=== PATIENT | female | born 1990 | race Caucasian/White ===

== ENCOUNTER 2019-10-04 06:39 | Inpatient (IN) | payer SELFPAY ==
[2019-10-04] MEDS ORDERED: Penicillin G Potassium 5,000,000 Unit Vial ONE (07:00)
[2019-10-04] MEDS ORDERED: Ondansetron 4 MG/2 ML SDV IV PRN (07:42)
[2019-10-04] MEDS ORDERED: Tranexamic Acid 1,000 MG in Sodium Chloride 0.9% 100 ML IV PRN (07:42)
[2019-10-04] MEDS ORDERED: Methylergonovine 0.2 MG/1 ML Amp IM PRN (07:42)
[2019-10-04] MEDS ORDERED: Lactated Ringers 500 ML IV ONE (07:42)
[2019-10-04] MEDS ORDERED: Carboprost Tromethamine 250 MCG/1 ML Amp IM PRN (07:42)
[2019-10-04] MEDS ORDERED: Misoprostol 400 MCG (4 X 100 MCG TAB) RECTAL PRN (07:42)
[2019-10-04] MEDS ORDERED: Sodium Chloride 0.9% 10 ML Syringe FLUSH PRN ×2 (07:42→18:25)
[2019-10-04] MEDS ORDERED: Lidocaine 1% 30 ML SDV INJECT PRN (07:42)
[2019-10-04] MEDS ORDERED: Acetaminophen 325 MG Tab PO PRN (07:42)
[2019-10-04] MEDS ORDERED: Oxytocin/Normal Saline 30 UNIT/500 ML BAG IV SCH (07:45)
[2019-10-04] MEDS: Lactated Ringers 1,000 ML IV SCH ×2 (09:15→15:53)
[2019-10-04] MEDS: Penicillin G Potassium 3 MILLUNITS in Sodium Chloride 0.9% 100 ML IV SCH ×4 (11:15→23:41)
--- NOTE | 2019-10-04 14:19 | HP ---
ADDENDUM: VITAL SIGNS: Temperature 97, heart rate 72, blood pressure 107/61. Labs did return. Her hemoglobin was 11.7 and her platelets were in the 187,000. We will continue await further labs to return. MOD /[id number]
--- NOTE | 2019-10-04 14:33 | OBOUT ---
DATE: 10/04/2019 TIME: 7:36 to 7:48. REASON FOR NST: 1. Intrauterine at 35 and 1/7 weeks by ultrasound yesterday and 40 and 6/7 weeks by last menstrual period. 2. Vaginal bleeding. 3. Active labor. 4. Insufficient care. 5. History of fast labor and delivery, not a transfer candidate. 6. G4, P3-0-0-3. 7. History of signing out against medical advice earlier today. NST INTERPRETATION: During this time period, heart tone baseline is approximately 125, and there are at least two 15 x 15 beats per minute accelerations making this strip reactive and reassuring. Tocometer reveals evidence of 1 contraction. Blood pressure 108/60, heart rate 70. ASSESSMENT: 1. Nonstress test, reactive and reassuring. 2. Tocometer with one contraction. PLAN: The patient has been moved from the ER where she was triaged to the OB floor at this current time. We will continue to follow clinically and closely with monitoring and watch for bleeding status as well as status. OR has been notified of this patient's case as well, and we will continue to follow clinically and closely at this point in time. The patient and her understand and agree. [facility] /[id number]
--- NOTE | 2019-10-04 15:37 | HP ---
PATIENT IDENTIFICATION: Devika Mcmillan is a 29-year-old G4, P3-0-0-3, interum at 35-1/7 weeks by ultrasound on 10/03/2019 versus 40-6/7 weeks by LMP, who has received care through a real estate loan processor, who was evaluated last night with vaginal bleeding and presents with continued vaginal bleeding after she signed out against medical advice earlier this morning. HISTORY OF PRESENT ILLNESS: The patient states at about 5:45 a.m. she was woken up by contractions that were strong in nature felt throughout her abdomen and noted vaginal bleeding described as bright red blood enough, when she got on the toilet it was dripping out but not gushing and was enough to taint the toilet bowl red associated with clots, the largest being a stringing size clot similar to a gummy worm. Since then, she has had associated contractions, on average she states she has had 4 in 45 minutes. She felt them in different degrees in terms of pain. She breathes through them when they are severe. She denies any other pain outside of this. With this in context, the patient has a history of following with a real estate loan processor for this . Please see previous dictation that was done with initial evaluation 10/03/2019 through 10/04/2019 earlier this morning. She signed out against medical advice earlier this morning and presents back with increased vaginal bleeding. She does have a history of fast labor and delivery x1, noting that she delivered within half hour to an an hour after contractions starting getting strong and she was in an active labor pattern with her second child. ALLERGIES: None. MEDICATIONS: None. PAST MEDICAL HISTORY: Negative. PAST SURGICAL HISTORY: Negative. FAMILY HISTORY: Negative for any anesthesia, bleeding problems, or defects. SOCIAL HISTORY: Patient lives in [place] with her and 3 children. They do have a milking cow and some chickens as pets. REVIEW OF SYSTEMS: Otherwise, reviewed and felt to be noncontributory other than the above. OBJECTIVE: VITAL SIGNS: We will come back to vitals. GENERAL APPEARANCE: Female, appears stated age, acting appropriate for age. Breathing through contractions minimally but answering questions appropriately in between. HEENT: Head is atraumatic. EOMs intact. PERRLA. No scleral icterus. No obvious otorhinorrhea. Mucous membranes moist. NECK: No obvious tenderness. LUNGS: Clear to auscultation bilaterally. HEART: S1, S2. Regular rate and rhythm. ABDOMEN: Gravid. Gian indeterminate. Nontender and nondistended. Bowel sounds positive. No other organomegaly, pulsatile masses, or hernias. No rebound, rigidity, or guarding. Measuring smaller than 40-6/7 weeks. : Normal external female genitalia. Normal position and presentation of the urethra. Vaginal exam does reveal mild active bleeding that is bright red blood associated with clots with vaginal exam revealing 4 cm, 100% effaced, 0 station, vertex suspected with bag of water suspected to be felt. EXTREMITIES: No peripheral edema. Deep tendon reflexes 1 to 2/4 bilaterally and symmetric in the lower extremities. NEUROLOGIC: Mood and affect congruent. Judgment and insight intact. SKIN: No cyanosis, clubbing, or jaundice. LABORATORY DATA: CBC, type and screen, and no care. Blood labs were drawn, as well as IV started in the ER with triage during her bleeding there. ER COURSE: Patient was immediately hooked up to the monitor. heart tones were in the 120s and acceleration was noted at that time. She was watched closely thereafter, had a couple contractions 7 minutes apart with no obvious late decelerations and then another acceleration before she left to go to the regular floor. She had IV started with penicillin G 5 million units started due to her potential being at 35-1/7 weeks with suspected labor and vaginal bleeding. Ultrasound was done last night/earlier this morning. Please see previous dictation regard this, did not reveal any evidence of previa, around 35 weeks on 10/03/2019 with dating with vertex presentation, left fundal placenta noted. ASSESSMENT/PLAN: 1. Intrauterine 35-1/7 weeks by ultrasound on 10/03/2019 and 40-6/7 weeks by last menstrual period. 2. Vaginal bleeding, questionable cause. No evidence of previa on ultrasound. No distress noted at this point in time. Vaginal exam does reveal some change with her thinning out significantly. She has minimal bleeding at this point in time. We will continue to follow clinically and closely, and I did discuss this with her and her . 3. Active labor suspected with contractions and cervical change. 4. Insufficient care. No care labs were drawn in terms of blood work. She defers other labs but did do a GBS and started penicillin G as above. 5. History of fast labor and delivery, which makes this patient not a transfer candidate due to her cervix changing and history of fast labor and delivery, and this was discussed with the patient and her and they understand and agreed. 6. G4, P3-0-0-3. 7. History of signing out against medical advice earlier this morning, now returning with concerns as above with vaginal bleeding. PLAN: The patient will be admitted. We will start penicillin G for GBS prophylaxis, GBS swab was obtained. For her vaginal bleeding, we will continue to monitor as well as keep her on the monitor for monitoring, watch for any signs and symptoms of distress and did discuss with them the potential need. The plan is to continue to follow clinically and closely. If anything worsens or signs of distress, she may need versus other intervention, and we will follow her cervical change advisor time as well. The patient understands agrees above treatment plan as well as her . [facility] /[id number]
[2019-10-04] MEDS ORDERED: Docusate Sodium 100 MG Cap PO PRN (18:25)
[2019-10-04] MEDS ORDERED: Zolpidem 5 MG Tab PO PRN (18:25)
[2019-10-04] MEDS ORDERED: Benzocaine/Menthol 20%-0.5% Spray 56 GM Canister TOP PRN (18:25)
[2019-10-04] MEDS ORDERED: Oxytocin 10 Units/1 ML SDV IM PRN (18:25)
[2019-10-04] MEDS ORDERED: Simethicone 80 MG Tab.Chew PO PRN (18:25)
[2019-10-04] MEDS ORDERED: Ibuprofen 800 MG Tab PO PRN (18:25)
[2019-10-05] MEDS ORDERED: Prenatal Multivitamin with Calcium/Folic Acid/Iron Tab PO SCH (09:00)
--- NOTE | 2019-10-05 13:56 | DEL ---
DATE: 10/04/2019 PREOPERATIVE DIAGNOSES: 1. Intrauterine at 35-1/7 weeks by ultrasound on 10/03/2019, and 40- 6/7 weeks based on last menstrual period with care through a telegraph repeater technician until 10/03/2019. 2. Vaginal bleeding, increasing upon admission. 3. Active labor upon admission. 4. Insufficient care. 5. History of fast labor and delivery with the above risk factors and making her not a transfer candidate. 6. History of signing out against medical advice on the taker away of 10/04/2019 and readmitted afterwards. 7. 4, para 3-0-0-3. 8. Group B Streptococcus unknown with 3 doses of penicillin given per orders and protocol. 9. Oligohydramnios with amniotic fluid index of 3.9 on 10/03/2019. POSTOPERATIVE DIAGNOSES: 1. Intrauterine at 35-1/7 weeks by ultrasound on 10/03/2019, and 40- 6/7 weeks based on last menstrual period with care through a telegraph repeater technician until 10/03/2019-delivered. 2. Vaginal bleeding, increasing upon admission. 3. Active labor upon admission. 4. Insufficient care. 5. History of fast labor and delivery with the above risk factors and making her not a transfer candidate. 6. History of signing out against medical advice on the taker away of 10/04/2019 and readmitted afterwards. 7. 4, para 3-0-0-3. 8. Group B Streptococcus unknown with 3 doses of penicillin given per orders and protocol. 9. Oligohydramnios with amniotic fluid index of 3.9 on 10/03/2019. 10.Markedly calcified placenta in the center with velamentous insertion of the umbilical cord with blood vessels not traversing the center portion where calcification is noted. The patient defers wanting placenta sent. PROCEDURES PERFORMED: NST followed by spontaneous vaginal delivery on 10/04/2019. ANESTHESIA/ANALGESIA: None. ESTIMATED BLOOD LOSS: With her delivery, EBL was less than 100 mL. Earlier in the day, she probably had approximately 200 mL. FINDINGS: Female. sores and weight pending. SUMMARY OF EVENTS: The patient is a 29-year-old, G4, P 3-0-0-3, intrauterine at 35-1/7 weeks by ultrasound on 10/03/2019 and 40-6/7 weeks by LMP with telegraph repeater technician care, who presented with vaginal bleeding on 10/03/2019. Left AMA on the taker away of 10/04/2019, and then later in the morning had increased vaginal bleeding and returned. She was evaluated on 10/03/2019 and had oligohydramnios with an CINDY of 3.9 cm. With her increased vaginal bleeding, she was evaluated in the ER prior to being sent to the OB floor on her second evaluation on 10/04/2019. Labs were done. She had history of insufficient care, history of fast labor and deliveries. She was not felt to be a transfer candidate due to her bleeding as well as history of fast labor and deliveries. She was found to be 4 cm on 10/03/2019 and 10/04/2019 admission and evaluations. She subsequently was admitted. No care labs were done in terms of blood work. She denied labs except for group B strep, which was obtained. Penicillin was started, and she was given 3 doses. She was followed closely throughout the day with vaginal bleeding that slowed down and was more mucousy in nature and brownish in nature per nurse report. She continued into labor. After third dose penicillin was given, she was requesting Pitocin, but then her contractions started increasing in frequency and intensity. She was subsequently continued to labor and then was found to be complete, and I was called to the room, donned sterile gown and gloves, and the patient pushed with contractions, and with approximately 2 to 3 contractions pushing, she delivered the vertex in CHARLIE presentation followed by anterior and posterior shoulder as well as the rest of the infant without difficulty. Mouth and nares were suctioned. Cord was doubly clamped and cut, and the infant was resuscitated on mother's abdomen. Then, approximately 10 mL of cord blood obtained for labs. Placenta was then delivered with gentle cord traction and fundal massage within 5 minutes and was noted to have velamentous insertion as well as calcified center with blood vessels not traversing this area, with blood vessels making a V-like shape, where they were traversing the placenta. Thereafter fundal massage ensued as well as Pitocin per protocol, and bleeding was minimal. Perineum, vagina, and perirectal areas were then examined without any tears or lacerations. Mother and are currently stable at the time of dictation. [facility] /[id number]
--- NOTE | 2019-10-06 11:00 | DISCH ---
ADMITTING DIAGNOSES: 1. Intrauterine at 35 and 1/7 weeks by ultrasound on 10/03/2019 versus 40 and 6/7 weeks by last menstrual period with midwifery care. 2. Vaginal bleeding upon admission. 3. Active labor upon admission. 4. Insufficient care. 5. History of fast labor and delivery - not a transfer candidate. 6. Oligohydramnios with CINDY of 3.9 on ultrasound on 10/03/2019. 7. History of signing out against medical advice on maxillofacial surgeon of 10/04/2019 and then returning with above concerns with increased bleeding. 8. GBS unknown. 9. G4, P3-0-0-3. DISCHARGE DIAGNOSES: 1. Intrauterine at 35 and 1/7 weeks by ultrasound on 10/03/2019 versus 40 and 6/7 weeks by last menstrual period with midwifery care, delivered, suspect term based on infant examination. 2. Vaginal bleeding upon admission. 3. Active labor upon admission. 4. Insufficient care. 5. History of fast labor and delivery - not a transfer candidate. 6. Oligohydramnios with CINDY of 3.9 on ultrasound on 10/03/2019. 7. History of signing out against medical advice on maxillofacial surgeon of 10/04/2019 and then returning with above concerns with increased bleeding. 8. GBS unknown. 9. G4, P3-0-0-3. 10.Velamentous insertion of umbilical cord and calcifications along midportion of the placenta with vessels not traversing this region. 11.Anemia of acute blood loss. Hemoglobin dropping from 11.7 down to 10.1. PROCEDURES PERFORMED: NST followed by spontaneous vaginal delivery. HISTORY OF PRESENT ILLNESS: Please see H and P. SUMMARY OF HOSPITAL COURSE: The patient was admitted on the above date with the above diagnoses after signing out earlier against medical advice, presented with increased vaginal bleeding and was found to be in active labor, not a transfer candidate with history of fast labor and delivery as well as the amount of bleeding that she was having. She had oligohydramnios diagnosed the day before in the hospital with an CINDY of 3.9. She was subsequently admitted, followed closely. She did receive 3 doses of penicillin as she was GBS unknown and considered premature based on ultrasound. She subsequently had a spontaneous vaginal delivery yielding a female with score of 8 and 9, weighing 6 pounds 2 ounces (2790 g). Please see delivery note for further details. day #1, date of discharge, the patient was tolerating p.o., ambulating, urinating, passing flatus, and requesting discharge. PHYSICAL EXAMINATION: Vital Signs: Last set of vitals updated and listed in the chart. Temperature 98.4, heart rate 70, blood pressure 99/59, respiratory rate 16. Lungs: Clear to auscultation bilaterally. Heart: S1, S2. Regular rate and rhythm. Genitourinary: Firm uterus -1 below umbilicus. Extremities: No peripheral edema. No calf pain. No chest pain, shortness of breath, or lightheadedness. CONDITION ON DISCHARGE COMPARED TO CONDITION ON ADMISSION: Improved. DISCHARGE INSTRUCTIONS: 1. Diet as tolerated. 2. Activity: No lifting more than 20 pounds. No sit-ups, straining, and pelvic rest for the next 6 weeks with immediate return to fertility discussed with the patient. 3. Reasons to go to the emergency room were discussed with the patient in detail including, but not limited to, temperature greater than 100.4, foul- smelling discharge, red hot tender breasts, or increased vaginal bleeding, or any other concerns. DISCHARGE MEDICATIONS: vitamins [id number] with iron. FOLLOWUP: Recommend following up with her data review specialist whom she is planning on getting care through. I did discuss with the patient in the interim reasons to return or go to the emergency room in regard to infant as well as the importance of followup and ramifications of not doing so. She is planning on following up with her infant with Amalia, the data review specialist as well. [facility] /[id number]
== END 2019-10-05 18:30 | disposition home or self-care (01) | DRG 806 ==
LOC: DL.OBCHECK 06:39 → DL.OB 07:42 → UNDOADMOB 07:42 → DL.OB 18:10 → OBSVTOIN 18:26 → DL.OB 18:26 → INTOOBSV 18:26
PROVIDERS: ADMIT Family Medicine; ATTEND Family Medicine
PROC: 10E0XZZ Delivery of Products of Conception, External Approach (ICD-10-PCS; principal; 2019-10-04)
DX: O67.9 Intrapartum hemorrhage, unspecified (principal); O41.03X0 Oligohydramnios, third trimester, not applicable or unspecified; Z37.0 Single live birth; D62 Acute posthemorrhagic anemia; O99.02 Anemia complicating childbirth; Z3A.35 35 weeks gestation of pregnancy
CPT/HCPCS: 36415; 59025; 59409; 85027; 86592; 86762; 86803; 86850; 86900; 86901; 87081; 87340; 87389; J2540; J2590; J7050; J7120